=== PATIENT | male | born 1965 | race Caucasian/White ===

== ENCOUNTER 2020-09-26 07:44 | Emergency (ER) | payer OTHER ==
[~2020-09-26] VITALS: Ht 175.3 cm; Wt 90.0 kg
[2020-09-26] MEDS ORDERED: PROVENTIL0.083 % IN (07:58)
[2020-09-26 08:11] LABS: HEMATOCRIT 45.1 % (39.0-50.0); HEMOGLOBIN 14.2 g/dl (14.0-18.0); IMMATURE GRANULOCYTES 0.5 % (0.0-5.0); MEAN CELL VOLUME 95.3 fL CALC (80.0-100.0); MEAN CORPUSCULAR HGB CONC 31.5 g/dL CAL (32.0-36.0); NEUT# 12.56 thou/uL (1.82-7.42); RED BLOOD COUNT 4.73 mill/uL (4.70-6.10); RED CELL DISTRI WIDTH 12.2 % (11.5-15.5)
[2020-09-26 08:32] LABS: ALBUMIN 3.8 g/dL (3.2-5.0); ALKALINE PHOSPHATASE 59 u/l (38-126); AMYLASE 84 u/l (30-110); ANION GAP 13 (6-22 (CALC)); BILIRUBIN, TOTAL 0.2 mg/dL (0.0-1.4); BUN 11 mg/dL (9-20); BUN/CREATININE RATIO 14 (12-20 (CALC)); CARBON DIOXIDE 27 mmol/l (22-30); CHLORIDE 104 mmol/l (95-108); CREATININE 0.8 mg/dL (0.7-1.3); GFR > 60 ML/MIN (>=60 (CALC)); GFR FOR AFR.AMER. > 60 ML/MIN (>=60 (CALC)); LIPASE 233 u/l (23-300); POTASSIUM 4.2 mmol/l (3.5-5.1); SGOT/AST 21 u/l (17-59); SODIUM 140 mmol/l (137-146)
[2020-09-26 08:37] LABS: ACT PARTIAL THROMBO TIME 22.1 SECONDS (20.0-32.5); PROTHROMBIN TIME 10.3 SECONDS (9.0-12.5)
[2020-09-26 08:43] LABS: MYOGLOBIN 91 ng/mL (0 - 121)
[2020-09-26 13:30] VITALS: BP 101/66
== END 2020-09-26 13:30 | disposition short-term general hospital (02) | DRG 282 ==
LOC: ED 07:44
PROVIDERS: Emergency Medicine
DX: I21.4 Non-ST elevation (NSTEMI) myocardial infarction (principal); J45.909 Unspecified asthma, uncomplicated; Z20.822 Contact with and (suspected) exposure to COVID-19
CPT/HCPCS: J1644

== ENCOUNTER 2021-03-08 01:00 | Emergency (ER) | payer OTHER ==
[~2021-03-08] VITALS: Ht 175.3 cm; Wt 86.0 kg
[~2021-03-08 01:00] MED LIST: PROVENTIL0.083 % IN
[2021-03-08] MEDS ORDERED: COMBIVENT RESPIMAT IN (01:42)
[2021-03-08 01:43] LABS: IMMATURE GRANULOCYTES 0.5 % (0.0-5.0); MEAN CORPUSCULAR HGB 27.8 pG CALC (26.0-32.0); MEAN CORPUSCULAR HGB CONC 31.4 g/dL CAL (32.0-36.0); NEUT# 15.68 thou/uL (1.82-7.42); RED BLOOD COUNT 3.42 mill/uL (4.70-6.10); RED CELL DISTRI WIDTH 13.9 % (11.5-15.5)
[2021-03-08 01:44] LABS: HEMATOCRIT 30.3 % (39.0-50.0); HEMOGLOBIN 9.5 g/dl (14.0-18.0); MEAN CELL VOLUME 88.6 fL CALC (80.0-100.0)
[2021-03-08 01:55] LABS: ALBUMIN 3.5 g/dL (3.2-5.0); ALKALINE PHOSPHATASE 90 u/l (38-126); ANION GAP 12 (6-22 (CALC)); BILIRUBIN, TOTAL 0.4 mg/dL (0.0-1.4); BUN 14 mg/dL (9-20); BUN/CREATININE RATIO 17 (12-20 (CALC)); CARBON DIOXIDE 31 mmol/l (22-30); CHLORIDE 97 mmol/l (95-108); CREATININE 0.8 mg/dL (0.7-1.3); GFR > 60 ML/MIN (>=60 (CALC)); GFR FOR AFR.AMER. > 60 ML/MIN (>=60 (CALC)); POTASSIUM 4.1 mmol/l (3.5-5.1); SGOT/AST 16 u/l (17-59); SODIUM 135 mmol/l (137-146); TOTAL PROTEIN 7.7 g/dL (6.3-8.2)
[2021-03-08 01:56] LABS: ACT PARTIAL THROMBO TIME 31.4 SECONDS (20.0-32.5); INTERNATIONAL NORMALIZED RATIO 1.1 RATIO (0.7-1.3); PROTHROMBIN TIME 11.8 SECONDS (9.0-12.5)
[2021-03-08 02:52] VITALS: BP 110/70
--- NOTE | 2021-03-09 11:03 | NUR ---
PRELIM BLOOD CX SHOWS GRAM POSITIVE COCCI IN 2/4 VIALS, SAME SET. REPORTED TO DR PADRON. PT WAS TRANSFERRED TO [facility], NO LONGER THERE. SENT RESULTS TO [facility] FAX [phone] AND REPORTED TO ALEJANDRO. RYAN F/U WITH FINAL RESULTS.
== END 2021-03-08 02:45 | disposition short-term general hospital (02) | DRG 863 ==
LOC: ED 01:00
DX: T81.41XA Infection following a procedure, superficial incisional surgical site, initial encounter (principal); L02.213 Cutaneous abscess of chest wall; L03.313 Cellulitis of chest wall; J45.909 Unspecified asthma, uncomplicated; Y83.2 Surgical operation with anastomosis, bypass or graft as the cause of abnormal reaction of the patient, or of later complication, without mention of misadventure at the time of the procedure; Z95.1 Presence of aortocoronary bypass graft; Z20.822 Contact with and (suspected) exposure to COVID-19
CPT/HCPCS: Q9967

== ENCOUNTER 2021-05-10 15:09 | Emergency (ER) | payer OTHER ==
[~2021-05-10] VITALS: Ht 175.3 cm; Wt 86.4 kg
[~2021-05-10 15:09] MED LIST changes: +COMBIVENT RESPIMAT IN
[2021-05-10 16:03] LABS: IMMATURE GRANULOCYTES 0.1 % (0.0-5.0); MEAN CELL VOLUME 93.6 fL CALC (80.0-100.0); MEAN CORPUSCULAR HGB 28.4 pG CALC (26.0-32.0); MEAN CORPUSCULAR HGB CONC 30.4 g/dL CAL (32.0-36.0); NEUT# 10.12 thou/uL (1.82-7.42); RED BLOOD COUNT 4.5 mill/uL (4.70-6.10)
[2021-05-10 16:07] LABS: HEMATOCRIT 42.1 % (39.0-50.0); HEMOGLOBIN 12.8 g/dl (14.0-18.0)
[2021-05-10 16:26] LABS: ALKALINE PHOSPHATASE 91 u/l (38-126); ANION GAP 13 (6-22 (CALC)); BUN 14 mg/dL (9-20); BUN/CREATININE RATIO 16 (12-20 (CALC)); CARBON DIOXIDE 26 mmol/l (22-30); CHLORIDE 104 mmol/l (95-108); CREATININE 0.9 mg/dL (0.7-1.3); GFR > 60 ML/MIN (>=60 (CALC)); GFR FOR AFR.AMER. > 60 ML/MIN (>=60 (CALC)); POTASSIUM 4.9 mmol/l (3.5-5.1); SGOT/AST 21 u/l (17-59); SODIUM 138 mmol/l (137-146)
[2021-05-10 16:28] LABS: ALBUMIN 4.3 g/dL (3.2-5.0); BILIRUBIN, TOTAL 0.6 mg/dL (0.0-1.4)
[2021-05-10 16:45] LABS: PROTHROMBIN TIME > 170.9 SECONDS (9.0-12.5)
[2021-05-10 16:46] LABS: INTERNATIONAL NORMALIZED RATIO > 17.0 RATIO (0.7-1.3)
[2021-05-10 18:12] VITALS: BP 140/77
== END 2021-05-10 18:11 | disposition short-term general hospital (02) | DRG 66 ==
LOC: ED 15:09
PROVIDERS: Family Medicine
DX: I62.9 Nontraumatic intracranial hemorrhage, unspecified (principal); I10 Essential (primary) hypertension; J45.909 Unspecified asthma, uncomplicated; I25.10 Atherosclerotic heart disease of native coronary artery without angina pectoris; Z86.718 Personal history of other venous thrombosis and embolism; Z79.01 Long term (current) use of anticoagulants; Z20.822 Contact with and (suspected) exposure to COVID-19
CPT/HCPCS: J1953